=== PATIENT | male | born 1965 | race Caucasian/White ===

== ENCOUNTER 2017-10-19 09:23 | Emergency (ER) | payer BC ==
[2017-10-19 10:08] VITALS: BP 141/84
[2017-10-19] MEDS ORDERED: Levalbuterol 1.25MG/0.5ML NEB INH ONE (10:58)
--- NOTE | 2017-10-19 11:03 | UC ---
Respiratory Complaint HPI - HPI Summary HPI Summary: Pt c/o SOB, cough, fever nasal congestion and has history of asthma. - History of Current Complaint Chief Complaint: UCRespiratory Stated Complaint: RAMÍREZ Time Seen by Provider: 10/19/17 10:50 Hx Obtained From: Patient Onset/Duration: Gradual Onset, Lasting Weeks Severity Initially: Mild Severity Currently: Mild Character: Cough: Nonproductive Aggravating Factors: Exertion, Deep Breaths, Recumbent Position Associated Signs And Symptoms: Positive: Wheezing, URI, Nasal Congestion Related History: Seasonal Allergies - Risk Factors Pulmonary Embolism Risk Factors: Negative Cardiac Risk Factors: Negative Pseudomonas Risk Factors: Negative Tuberculosis Risk Factors: Negative - Allergies/Home Medications Allergies/Adverse Reactions: Allergies Allergy/AdvReac Type Severity Reaction Status Date / Time Erythromycin Allergy Severe ABD Verified 10/19/17 10:03 CRAMPING AND HIVES Levofloxacin [From Levaquin] Allergy Severe Altered Verified 10/19/17 10:03 Mental Status Home Medications: Home Medications Acetaminophen [Acetaminophen Extra Stren] 1,000 mg PO Q6H PRN 10/19/17 [History Confirmed 10/19/17] Albuterol HFA INHALER* [Ventolin HFA Inhaler*] 1 - 2 puff INH Q4H PRN 10/19/17 [ History Confirmed 10/19/17] Empagliflozin-Metformin HCl [Synjardy 5-1000 mg] 1 tab PO BID 10/19/17 [History Confirmed 10/19/17] Ibuprofen TAB* [Advil TAB*] 800 mg PO Q8H PRN 10/19/17 [History Confirmed ] Levothyroxine TAB* [Synthroid 25 MCG TAB*] 25 mcg PO DAILY 10/19/17 [History Confirmed 10/19/17] Lisinopril/HCTZ 20/25(NF) [Zestoretic 20/25(NF)] 1 tab PO DAILY 10/19/17 [ History Confirmed 10/19/17] Rosuvastatin (NF) [Crestor (NF)] 5 mg PO DAILY 10/19/17 [History Confirmed 10/19] amLODIPine TAB* [Norvasc 5 mg TAB*] 5 mg PO DAILY 10/19/17 [History Confirmed ] PMH/Surg Hx/FS Hx/Imm Hx Previously Healthy: Yes - Surgical History Surgical History: Yes Surgery Procedure, Year, and Place: TONSILS CHILD. testicular torsion fixed 1987. fusion S-1 to lumbar, then L4-5 - Family History Known Family History: Positive: Cardiac Disease - Social History Occupation: Employed Full-time Lives: With Family Alcohol Use: Rare Substance Use Type: None Smoking Status (MU): Never Smoked Tobacco Have You Smoked in the Last Year: No - Immunization History Most Recent Influenza Vaccination: Not the Season Vaccination Up to Date: No Review of Systems Constitutional: Negative Skin: Negative Eyes: Negative ENT: Negative Respiratory: Cough Cardiovascular: Negative Gastrointestinal: Negative Genitourinary: Negative Motor: Negative Neurovascular: Negative Musculoskeletal: Negative Neurological: Negative Psychological: Negative Is Patient Immunocompromised?: No All Other Systems Reviewed And Are Negative: Yes Physical Exam Triage Information Reviewed: Yes Appearance: Well-Appearing Vital Signs: Initial Vital Signs Temp 99.1 F 10/19/17 10:00 Pulse 108 10/19/17 10:00 Resp 18 10/19/17 10:00 BP 141/84 10/19/17 10:00 Pulse Ox 98 10/19/17 10:00 Vital Signs Reviewed: Yes Eye Exam: Normal ENT Exam: Other ENT: Positive: Nasal congestion Dental Exam: Normal Neck exam: Normal Respiratory Exam: Other Respiratory: Positive: Decreased breath sounds - bilateral bases Cardiovascular Exam: Normal Musculoskeletal Exam: Normal Neurological Exam: Normal Psychological Exam: Normal Skin Exam: Normal UC Diagnostic Evaluation - Laboratory O2 Sat by Pulse Oximetry: 98 Respiratory Course/Dx - Differential Dx/Diagnosis Differential Diagnosis/HQI/PQRI: Asthma, Bronchitis, Exacerbation Of COPD Provider Diagnoses: bronchitis Discharge - Discharge Plan Condition: Stable Disposition: HOME Prescriptions: Albuterol 2.5MG/3ML (0.083%)* [Ventolin 2.5 MG/3 ML NEB.JANAE*] 2.5 mg INH Q6H PRN #1 box PRN Reason: Sob/Wheezing Amoxicillin/Clavulanate TAB* [Augmentin TAB 875*] 875 mg PO Q12H #14 tab Benzonatate CAP* [Tessalon 100 MG CAP*] 100 mg PO Q8H PRN #30 cap PRN Reason: Cough methylPREDNISolone TAB* [Medrol TAB*] 4 - 8 mg PO .SEE JULITO #1 julito Montelukast Sodium TAB* [Singulair TAB*] 10 mg PO BEDTIME #14 tab Patient Education Materials: Acute Bronchitis (ED) Referrals: Kaylen HENDERSON,Darrick Collins [Primary Care Provider] - If Needed Additional Instructions: Please follow up with your PCP or return to clinic as needed
== END 2017-10-19 11:18 | disposition home or self-care (01) ==
LOC: UCCORT 09:23
DX: J40 Bronchitis, not specified as acute or chronic (principal)
CPT/HCPCS: 99212; A9270-GY; G0463